=== PATIENT | female | born 1955 | race Caucasian/White ===

== ENCOUNTER 2018-05-05 11:41 | Emergency (ER) | payer OTHER ==
[2018-05-05] MEDS ORDERED: TETANUS/DIPHTHERIA/PERTUSSIS 0.5 ML SYRINGE IM ONE (12:33)
--- NOTE | 2018-05-05 13:00 | ED Physician Documentation ---
PD HPI LOWER EXT INJURY - Stated complaint Stated Complaint: R LEG LUMP/RED - Chief complaint Chief Complaint: Laceration - History obtained from History obtained from: Patient - History of Present Illness PD HPI LOW EXT INJURY LOCATION: Right (She was in [employer] today and scraped her right cheek on the box that she was jumping on. She is able to walk and bear weight no other injuries. Tetanus is not up-to-date.) Review of Systems Constitutional: denies: Fever, Chills GI: denies: Abdominal Pain, Nausea, Vomiting : denies: Dysuria PD PAST MEDICAL HISTORY - Past Medical History Past Medical History: Yes Cardiovascular: Hypertension - Past Surgical History Past Surgical History: Yes Ortho: Other - Present Medications Home Medications: Ambulatory Orders Medication Instructions Recorded Confirmed Aspirin 05/05/18 Calcium Carbonate [Calcium] 05/05/18 Lisinopril 05/05/18 Multivitamin W/Minerals [Theragran 05/05/18 M] Rosuvastatin Calcium [Crestor] 05/05/18 - Allergies Allergies/Adverse Reactions: Allergies Allergy/AdvReac Type Severity Reaction Status Date / Time No Known Drug Allergies Allergy Verified 05/05/18 12:19 - Social History Does the pt smoke?: No Smoking Status: Never smoker Does the pt drink ETOH?: No Does the pt have substance abuse?: No - Immunizations Immunizations are current?: No Immunizations: TDAP >10years/unknown - POLST Patient has POLST: No PD ED PE NORMAL - Vitals Vital signs reviewed: Yes - General General: Alert and oriented X 3, No acute distress - Extremities Extremities: Other (There is a deep abrasion over the anterior right cheek, no tenderness or limited range of motion. Normal pedal pulses and sensation.) - Neuro Neuro: Alert and oriented X 3, Normal speech Results - Vitals Vitals: Vital Signs - 24 hr 05/05/18 12:15 Temperature 36.6 C Heart Rate 68 Respiratory 15 Rate Blood Pressure 154/81 H O2 Saturation 99 Oxygen O2 Source Room air PD MEDICAL DECISION MAKING - ED course ED course: The wound was cleansed and dressed by the RN, tetanus was updated. She was given advice on wound care. - Sepsis Event Vital Signs: Vital Signs - 24 hr 05/05/18 12:15 Temperature 36.6 C Heart Rate 68 Respiratory 15 Rate Blood Pressure 154/81 H O2 Saturation 99 Oxygen O2 Source Room air Departure - Departure Disposition: Home, Self Care Clinical Impression: Abrasion Condition: Good Record reviewed to determine appropriate education?: Yes Instructions: ED Abrasion Comments: Your blood pressure was elevated today on check into the emergency department. This does not mean that you have hypertension, it is a common phenomenon to come to the emergency department and have elevated blood pressure. I recommend that you see your primary care physician within the week to have it rechecked when you are feeling better.
[2018-05-05 13:31] VITALS: BP 148/80
== END 2018-05-05 13:30 | disposition home or self-care (01) ==
LOC: ED 11:41
DX: S80.811A Abrasion, right lower leg, initial encounter (principal); I10 Essential (primary) hypertension; Z79.82 Long term (current) use of aspirin; Z23 Encounter for immunization; W22.8XXA Striking against or struck by other objects, initial encounter; Y93.A9 Activity, other involving cardiorespiratory exercise
CPT/HCPCS: 90471; 99282; 99283

== ENCOUNTER 2023-03-14 07:58 | Emergency (ER) | payer MEDICARE, OTHER ==
--- NOTE | 2023-03-14 08:59 | ED Physician Documentation ---
History of Present Illness - Stated complaint Stated Complaint: FEMALE - Chief complaint Chief Complaint: General - History obtained from History obtained from: Patient - Additonal information Additional information: The patient comes to the emergency department chief complaint of vaginal mass. She states that she lifted a 60 pound bag of concrete off of a truck tailgate yesterday and set it down. She did not feel any bulging or pain in her pelvic region at that time but shortly thereafter, she went to take a shower and while washing, noticed a large, orange sized mass bulging out of her vaginal introitus. The patient states that she pushed it back in but then felt that it came out again. She used a mirror and was able to look and states that it was of an orange is red coloration. The patient states she ultimately got the mass to go back in but is here because she is concerned about what is going on. She states that she has had 1 child and has never had this happen before. She does CrossFit and weight training and states that she is accustomed to lifting heavy things. She denies any abdominal pain. No vaginal bleeding or discharge. She is sexually monogamous. She has not had any pelvic surgeries. No other complaints at this time. PD PAST MEDICAL HISTORY - Past Medical History Cardiovascular: Hypertension - Past Surgical History Past Surgical History: Yes Ortho: Other - Present Medications Home Medications: Ambulatory Orders Medication Instructions Recorded Confirmed Aspirin 05/05/18 Calcium Carbonate [Calcium] 05/05/18 Multivitamin W/Minerals [Theragran 05/05/18 M] Rosuvastatin Calcium [Crestor] 05/05/18 lisinopriL [Lisinopril] 05/05/18 - Allergies Allergies/Adverse Reactions: Allergies Allergy/AdvReac Type Severity Reaction Status Date / Time No Known Drug Allergies Allergy Verified 05/05/18 12:19 - Social History Does the pt smoke?: No Smoking Status: Never smoker Does the pt drink ETOH?: No Does the pt have substance abuse?: No - Immunizations Immunizations are current?: No Immunizations: TDAP >10years/unknown - POLST Patient has POLST: No PD ED PE NORMAL - Vitals Vital signs reviewed: Yes - General General: Alert and oriented X 3, No acute distress, Well developed/nourished - HEENT HEENT: Atraumatic, PERRL, EOMI, Moist mucous membranes - Neck Neck: Supple, no meningeal sign - Respiratory Respiratory: No respiratory distress - Abdomen Abdomen: Soft, Non tender, Non distended - Female Female : 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 No mass on bimanual exam. Cervix firm with os closed. Mild abrasions to cervix. Anterior vaginal wall is noted to collapse into speculum on withdrawal of speculum) - Derm Derm: Warm and dry - Extremities Extremities: No deformity - Neuro Neuro: Alert and oriented X 3 - Psych Psych: Normal mood, Normal affect Results - Vitals Vitals: Vital Signs - 24 hr 03/14/23 03/14/23 08:02 13:05 Temperature 36.7 C Heart Rate 56 L 72 Respiratory 18 18 Rate Blood Pressure 154/90 H 146/85 H O2 Saturation 98 99 Oxygen O2 Source Room air - Labs Labs: Laboratory Tests 03/14/23 03/14/23 09:00 09:00 WBC 6.4 RBC 4.72 Hgb 14.0 Hct 43.8 MCV 92.8 MCH 29.7 MCHC 32.0 RDW 13.8 Plt Count 344 MPV 9.8 Neut # (Auto) 3.4 Lymph # (Auto) 2.3 [place] # (Auto) 0.5 Eos # (Auto) 0.1 Baso # (Auto) 0.0 Absolute Nucleated RBC 0.00 Nucleated RBC % 0.0 Sodium 136 Potassium 4.4 Chloride 103 Carbon Dioxide 29 Anion Gap 4.0 L BUN 18 Creatinine 0.7 Estimated GFR (MDRD) 83 L Glucose 100 Calcium 10.3 Total Bilirubin 0.5 AST 22 ALT 21 Alkaline Phosphatase 77 Total Protein 7.7 Albumin 5.0 Globulin 2.7 Albumin/Globulin Ratio 1.9 Lipase 17 - Rads (name of study) Pelvic ultrasound Relevant Findings:: Final report received, See rad report (Uterine fibroids) PD Medical Decision Making - ED course Complexity details: reviewed results, re-evaluated patient, considered differential, d/w patient, d/w family ED course: I discussed with the patient that her exam does reveal a very soft and collapsible anterior vaginal wall, and I suspect this may be what had prolapsed out of her vaginal introitus yesterday. Her cervix is firm and the os is firmly closed and I do not find any evidence of an actual uterine prolapse. The patient does note that she has had urinary tract infections regularly to the point where her doctor has given her a prescription for antibiotics to just have on hand and start when she gets symptoms. I initially ordered a CT scan to evaluate for any potential masses or other pathology in the patient's pelvis whi ch may be contributing to her symptoms; however, our CT scanner went down and the patient CT was unable to be completed. As such, I ordered an ultrasound instead and this was done and showed uterine fibroids but otherwise no significant abnormalities. 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 Departure - Departure Disposition: 01 Home, Self Care Clinical Impression: Vaginal wall prolapse without uterine prolapse Uterine fibroid Qualifiers: Uterine leiomyoma location: unspecified location Qualified Code(s): D25.9 - Leiomyoma of uterus, unspecified Condition: Stable Instructions: Pelvic Organ Prolapse Nonsurg Tx, ED Fibroids Follow-Up: Mahamed Cool MD [Provider Admit Priv/Credential] - Comments: Your examination today revealed a firm cervix with a tightly closed opening and no uterine prolapse. However, your anterior vaginal wall was quite soft and did tend to bulge into the end of the speculum as it was removed from your vagina. Although you did not have any current prolapse on examination at this time, it was most likely your anterior vaginal wall that was prolapsing yesterday, given the findings on exam. Your ultrasound did not show any suspicious masses in your pelvis but you were noted to have some uterine fibroids. These may be contributing to the tendency for vaginal prolapse by increasing the weight of your uterus. In general, unless there is hemorrhage or infection, prolapse is not an emergent condition, and the decision to have conservative vs surgical treatment is for you to make in conjunction with a gynecologic specialist. If you would like to follow-up while here on [facility], you may do so at our women's clinic, the contact information for which has been provided on your discharge papers. However, if you are not have any further issues with the prolapse that seem urgent, you may also follow-up in [place] when you return. If you do begin to have severe abdominal pain or if you begin bleeding heavily from your vagina, you will need to return to the emergency department for reevaluation. Forms: PCP List Discharge Date/Time: 03/14/23 13:07
[2023-03-14 09:11] LABS: BASOPHILS % (AUTO) 0.5 %; EOSINOPHILS # (AUTO) 0.1 10^3/uL (0.0-0.7); EOSINOPHILS % (AUTO) 2.2 %; HCT - HEMATOCRIT 43.8 % (37.0-47.0); LYMPHOCYTES # (AUTO) 2.3 10^3/uL (1.5-3.5); LYMPHOCYTES % (AUTO) 35.6 %; MEAN CORPUSCULAR HEMOGLOBIN 29.7 pg (27.0-31.0); MEAN CORPUSCULAR VOLUME 92.8 fL (81.0-99.0); MEAN PLATELET VOLUME 9.8 fL (7.9-10.8); MONOCYTES # (AUTO) 0.5 10^3/uL (0.0-1.0); MONOCYTES % (AUTO) 7.5 %; NEUTROPHILS # (AUTO) 3.4 10^3/uL (1.5-6.6); PLT - PLATELET COUNT 344 10^3/uL (130-450); RED BLOOD COUNT 4.72 10^6/uL (4.20-5.40); RED CELL DISTRIBUTION WIDTH 13.8 % (12.0-15.0); WHITE BLOOD COUNT 6.4 x10^3/uL (4.8-10.8)
[2023-03-14 09:30] LABS: ALBUMIN/GLOBULIN RATIO 1.9 (1.0-2.2); BILIRUBIN,TOTAL 0.5 mg/dL (0.2-1.0); CALCIUM 10.3 mg/dL (8.5-10.3); CREATININE 0.7 mg/dL (0.6-1.3); POTASSIUM 4.4 mmol/L (3.5-4.5); TOTAL PROTEIN 7.7 g/dL (6.4-8.9)
[2023-03-14] MEDS ORDERED: iohexoL-300 100 ML VIAL IVP ONE (12:05)
[2023-03-14 13:07] VITALS: BP 146/85
--- NOTE | 2023-03-14 13:12 | Ultrasound Report ---
PROCEDURE: Pelvic w/Doppler Limited INDICATIONS: vaginal prolapse, mass sensation TECHNIQUE: Real-time transabdominal scanning was performed of the pelvic organs, with image documentation. Dopp ler interrogation was performed of the ovaries bilaterally. COMPARISON: None. FINDINGS: Uterus: Uterus is anteverted and normal in size at 6.0 x 3.2 x 4.8 cm. Multiple uterine fibroids are present. Left posterior subserosal fibroid measuring 20 mm. Right posterior subserosal fibroid measu ring 23 mm. Left posterior subserosal fibroid measuring 18 mm.. The endometrium measures 3 mm in com bined thickness. Ovaries: The right ovary measures 2.2 x 1.1 x 2.0 cm, with a calculated ovarian volume of 2.5 cc. T he left ovary measures 1.6 x 0.7 x 1.2 cm, with a calculated ovarian volume of 0.7 cc. Appropriate b lood flow to the ovaries with Doppler interrogation. Less than 12 follicles can be seen in each ova ry. No adnexal masses are seen. No cystic lesions measuring greater than 3 cm. Other: No pathologic free abdominal or pelvic fluid. IMPRESSION: 1. Multiple uterine fibroids. 2. No acute process. Reviewed by: Cristian Car MD on 03/14/2023 1:10 PM PDT Approved by: Cristian Car MD on 03/14/2023 1:10 PM PDT Station ID: [id number]
== END 2023-03-14 13:07 | disposition home or self-care (01) ==
LOC: ED 07:58
DX: N81.10 Cystocele, unspecified (principal); D25.9 Leiomyoma of uterus, unspecified; I10 Essential (primary) hypertension; Z79.82 Long term (current) use of aspirin; Z79.899 Other long term (current) drug therapy
CPT/HCPCS: 36415; 76856; 80053; 83690; 85025; 93976; 99283; 99284; Q9967